=== PATIENT | female | born 1990 ===

== ENCOUNTER → 2024-12-26 | Outpatient (CLI) | payer SELFPAY ==
[2024-12-29 09:07] LABS: G6PD Quant Test 251 (127-427); Red Blood Cell Count Test/G6PD 4.54 x10E6/uL (3.77-5.28)
== END | disposition home or self-care (01) ==
LOC: LABSPEC 14:37
PROVIDERS: Visit Provider Nurse Practitioner Family
DX: R53.82 Chronic fatigue, unspecified (principal); G44.89 Other headache syndrome; G43.109 Migraine with aura, not intractable, without status migrainosus; R61 Generalized hyperhidrosis; M25.59 Pain in other specified joint; R20.2 Paresthesia of skin; F41.9 Anxiety disorder, unspecified; R41.89 Other symptoms and signs involving cognitive functions and awareness; B60.00 Babesiosis, unspecified
CPT/HCPCS: 82955